=== PATIENT | male | born 1945 | race Caucasian/White ===

== ENCOUNTER 2020-04-03 13:25 | Emergency (ER) | payer BC, MEDICARE ==
[~2020-04-03] VITALS: Ht 190.5 cm; Wt 89.8 kg
[~2020-04-03 13:25] MED LIST: ALEVE220 M1 PO; ALEVE220 MG PO; AMARYL4 MG PO; ATENOLOL100 MG PO; BUSPIRONE HCL10 MG; CELEBREX200 MG PO; COUMADIN7.5 MG PO; CYCLOBENZAPRINE10 MG PO; DIGOXIN125 MCG PO; DIGOXIN250 MCG PO; DILTIAZEM ER180 MG PO; DOK250 MG PO; FLECAINIDE ACET50 MG PO; FLOMAX0.4 MG PO; FUROSEMIDE20 MG PO; GLUCOPHAGE1000 MG; HUMALOG100 UNIT/1; HYDROCODON-ACE1 EA11 PO; IRON18 MG PO; LANOXIN125 MCG PO; LANTUS100 UNITS/; LUNESTA3 MG PO; MICARDIS80 MG PO; MIRALAX17 GM PO; MULTI VITAMIN1 EACH PO; OMEPRAZOLE20 MG PO; OXYCODONE HCL5 MG PO; SIMVASTATIN20 MG PO; VITAMIN C500 M1 PO; WARFARIN SODIUM5 MG PO; XARELTO10 MG PO
[2020-04-03] MEDS ORDERED: VITAMIN D310 MC4 PO (14:06)
--- NOTE | 2020-04-04 12:17 | EKG ---
[facility] [address] [facility] [place], [place] [address] Signed Atrial fibrillation with rapid ventricular response Septal infarct , age undetermined Possible Inferior infarct , age undetermined Abnormal ECG No previous ECGs available Confirmed by NEVILLE BEAN DO ([id number]) on 04/04/2020 12:16:47 PM Electronically Signed By: NEVILLE BEAN DO 04/04/20 1217 PATIENT NAME: ARRON DIAZ Electrocardiogram DATE OF : 45 PHYSICIAN: NEVILLE BEAN DO REPORT #: [id number] REPORT IS CONFIDENTIAL AND NOT TO BE RELEASED WITHOUT AUTHORIZATION
--- NOTE | 2020-04-04 12:17 | EKG ---
[facility] [address] [facility] [place] [address] Signed Sinus rhythm with premature atrial complexes Possible Left atrial enlargement Septal infarct (cited on or before 03-APR-2020) Abnormal ECG When compared with ECG of 03-APR-2020 13:40, (Unconfirmed) Sinus rhythm has replaced Atrial fibrillation Vent. rate has decreased BY 40 BPM Confirmed by NEVILLE BEAN DO ([id number]) on 04/04/2020 12:16:52 PM Electronically Signed By: NEVILLE BEAN DO 04/04/20 1217 PATIENT NAME: ARRON DIAZ Electrocardiogram DATE OF : 45 PHYSICIAN: NEVILLE BEAN DO REPORT #: [id number] REPORT IS CONFIDENTIAL AND NOT TO BE RELEASED WITHOUT AUTHORIZATION
== END 2020-04-03 15:57 | disposition home or self-care (01) ==
LOC: ED 13:25
DX: I48.91 Unspecified atrial fibrillation (principal); Z79.899 Other long term (current) drug therapy
CPT/HCPCS: 80053; 83735; 84484; 85025; 92960; 93005; 93010; 99152; 99285-25; J2704

== ENCOUNTER 2020-06-03 11:48 | Emergency (ER) | payer BC, MEDICARE ==
[~2020-06-03] VITALS: Ht 190.5 cm; Wt 91.6 kg
[~2020-06-03 11:48] MED LIST changes: +VITAMIN D310 MC4 PO
[2020-06-03] MEDS ORDERED: ASPIR-TRIN325 MG PO (11:59)
--- NOTE | 2020-06-03 12:57 | EKG ---
[facility] [address] [place] [address] Signed Sinus rhythm with marked sinus arrhythmia Otherwise normal ECG When compared with ECG of 03-APR-2020 14:42, premature atrial complexes are no longer present Criteria for Septal infarct are no longer present Confirmed by ROBINSON ESTRELLA MD ([id number]) on 06/03/2020 12:57:17 PM Electronically Signed By: ROBINSON ESTRELLA MD 06/03/20 1257 PATIENT NAME: ARRON DIAZ Electrocardiogram DATE OF : 45 PHYSICIAN: ROBINSON ESTRELLA MD REPORT #: [id number] REPORT IS CONFIDENTIAL AND NOT TO BE RELEASED WITHOUT AUTHORIZATION
== END 2020-06-03 15:20 | disposition home or self-care (01) ==
LOC: ED 11:48
DX: R55 Syncope and collapse (principal); E86.0 Dehydration; I48.91 Unspecified atrial fibrillation; Z79.82 Long term (current) use of aspirin
CPT/HCPCS: 71045; 80053; 81001; 83735; 84484; 85025; 85610; 93005; 93010; 96360; 99284-25; J7030

== ENCOUNTER 2022-03-28 13:50 | Day surgery (SDC) | payer OTHER, MEDICARE ==
[~2022-03-28] VITALS: Ht 190.5 cm; Wt 88.6 kg
--- NOTE | ~2022-03-28 | OR ---
[facility] [address] [place], [place] [address] Draft DATE OF OPERATION: 03/28/2022 SURGEON: Michael Stephenson MD PREOPERATIVE DIAGNOSIS: History of polyps. POSTOPERATIVE DIAGNOSIS: Small polyp right transverse colon (excised). PROCEDURE: Total colonoscopy to cecum with cold morcellation polypectomy x1. ANESTHESIA: Intravenous sedation, fentanyl 100 mcg and Versed 7 mg. INDICATION: A 76-year-old white man is a patient of LILLIAM Bradshaw. He has undergone colonoscopy in [place] in the past and had excision of polyps x2. I saw him 12 years ago in 2009. He has had umbilical hernia surgery as well as other interventions in the past. 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 He is chronically anticoagulated with Eliquis for paroxysmal atrial fibrillation. He is admitted at this time to undergo colonoscopy for surveillance. He understands the risks of bleeding, infection, and perforation. FINDINGS: The prep was adequate. Complete colonoscopy was undertaken to the cecum with full intubation of the cecum. There was a single small adenomatous polyp in the right transverse colon, which was excised with cold morcellation technique. The remaining colon was normal. DESCRIPTION OF PROCEDURE: The patient was brought to the endoscopy suite and placed in lateral decubitus position, given intravenous sedation to the point of slurred speech and nystagmus. Digital rectal examination was normal. The Olympus video colonoscope was passed in the rectum and manipulated throughout the colon ultimately intubating the cecum itself. The ileocecal valve and appendiceal orifice were normal. Irrigation was undertaken as necessary. The scope was carefully withdrawn. Examination undertaken identifying a right transverse colon polyp directly PATIENT NAME: ARRON DIAZ OPERATIVE REPORT DATE OF : 45 REPORT #: [id number] PHYSICIAN: MICHAEL STEPHENSON MD PCP: YOLETTE MCLEAN PA-C REPORT IS CONFIDENTIAL AND NOT TO BE RELEASED WITHOUT AUTHORIZATION [facility] [address] [place] [id number] Draft in the area of the hepatic flexure. This was excised with cold morcellation technique. Further withdrawal of scope showed no other findings of concern. Retroflexed view of the rectum was normal. Scope was removed. The patient was taken to the recovery room in good condition. CONCLUDING DIAGNOSIS: Polyps x1. PLAN: Recommend repeat colonoscopy in five years, sooner if clinically indicated. He will return to the ongoing care of LILLIAM Bradshaw. MD PAULA Alford/AMBERLYL /[id number] cc: LILLIAM Bradshaw Copies: ~ PATIENT NAME: ARRON DIAZ OPERATIVE REPORT DATE OF : 45 REPORT #: [id number] PHYSICIAN: MICHAEL STEPHENSON MD PCP: YOLETTE MCLEAN PA-C REPORT IS CONFIDENTIAL AND NOT TO BE RELEASED WITHOUT AUTHORIZATION
[~2022-03-28 13:50] MED LIST changes: +ASPIR-TRIN325 MG PO; +ELIQUIS5 MG PO; +METOPROLOL SUCC25 MG PO; +TRIAMCINOLONE A15 G2 TOP
--- NOTE | 2022-03-28 16:26 | NUR ---
03/28/22 1626 Jeni Rondon 1550 PT ARRIVED IN PACU SLEEPY WITH NO C/O'S. ABD SOFT AND PASSING FLATUS. 1600 DR AT BEDSIDE. ALL QUESTIONS ANSWERED. 1615 RESTING. REU. 1625 SITTING UP IN BED SIPPING ON WATER.
--- NOTE | 2022-03-30 16:35 | PATH ---
[facility] [address] [place], [place] [address] Signed SPECIMEN(S): A RIGHT TRANSVERSE COLON POLYP SPECIMEN SOURCE: A. RIGHT TRANSVERSE COLON POLYP CLINICAL HISTORY: Pre: History of colon polyps, surveillance colonoscopy. Post: Polyp x 1. FINAL PATHOLOGIC DIAGNOSIS: Right transverse colon polyp: - Tubular adenoma (multiple fragments). JVR:tiffany:C2NR MICROSCOPIC EXAMINATION: Histologic sections of all submitted blocks are examined by light microscopy. These findings, together with the gross examination, support the pathologic diagnosis. GROSS DESCRIPTION: The specimen, labeled and designated "Stanislaw, right transverse colon polyp," is received in formalin and consists of three ramos soft tissue fragments, ranging from 0.2-0.4 cm. Entirely submitted in (A1). VB (under the direct supervision of a pathologist) The Gross Description was prepared using a voice recognition system. The report was reviewed for accuracy; however, sound-alike word errors, addition and/or deletions may occur. If there is any question about this report, please contact Client Services. PERFORMING LABORATORY: The technical component was performed by [facility], [address] [place] [id number] (CLIA# [id number]). Professional interpretation was performed by [facility], [address] [place] [id number] (CLIA#: [id number]). Diagnostician: Keith Vargas MD Pathologist Electronically Signed 03/30/2022 PATIENT NAME: ARRON DIAZ PATHOLOGY DATE OF : 45 REPORT #: [id number] PHYSICIAN: YESSY MCKEON PCP: YOLETTE MCLEAN PA-C REPORT IS CONFIDENTIAL AND NOT TO BE RELEASED WITHOUT AUTHORIZATION
== END 2022-03-28 16:42 | disposition home or self-care (01) ==
LOC: OPS 13:50 → DS 13:50 → OPS 14:00 → DS 14:00 → OPS 16:42
PROVIDERS: ATTEND Surgery
PROC: 0DBL8ZX Excision of Transverse Colon, Via Natural or Artificial Opening Endoscopic, Diagnostic (ICD-10-PCS; principal; 2022-03-28 14:00)
DX: Z12.11 Encounter for screening for malignant neoplasm of colon (principal); D12.3 Benign neoplasm of transverse colon; L92.9 Granulomatous disorder of the skin and subcutaneous tissue, unspecified; I48.20 Chronic atrial fibrillation, unspecified; Z86.010 Personal history of colon polyps; Z79.01 Long term (current) use of anticoagulants; Z79.899 Other long term (current) drug therapy
CPT/HCPCS: 99153; G0500; J0690; J2250; J3010; J7121

== ENCOUNTER 2023-04-23 10:58 | Emergency (ER) | payer OTHER, MEDICARE ==
[~2023-04-23] VITALS: Ht 190.5 cm; Wt 92.2 kg
[2023-04-23 11:07] VITALS: BP 136/82
[2023-04-23 11:24] LABS: BASOPHILS 0.5 % (0-2); EOSINOPHILS 2.6 % (0-6); HEMATOCRIT 41.2 % (35.0-50.0); HEMOGLOBIN 14.1 g/dL (12.0-18.0); LYMPHOCYTES 24.1 % (24-44); MCH 31.5 (27-36); MCHC 34.3 g/dl (30-36); MCV 91.7 fl (81-99); MONOCYTES 6.6 % (0-12); NEUTROPHILS 66.2 % (39-80); PLATELET COUNT 159 K/uL (140-440); RBC 4.49 M/ul (4.3-5.7); RDW 13.8 (10.5-15.0)
[2023-04-23 11:51] LABS: ALBUMIN 3.3 g/dL (3.4-5.0); ALBUMIN/GLOBULIN RATIO 0.75 (1.1-2.4); ANION GAP 12.4 (7-21); BILIRUBIN, TOTAL 0.5 ng/dL (0.2-1.0); BUN/CREATININE RATIO 18.93 (6.0-28.6); CALCIUM 9.4 mg/dL (8.5-10.1); CREATININE, SERUM 1.32 mg/dL (0.70-1.30); POTASSIUM 4.4 mmol/L (3.5-5.1); PROTEIN, TOTAL 7.7 g/dL (6.4-8.2)
--- NOTE | 2023-04-24 11:17 | EKG ---
[facility] [address] [facility] [place] [address] Signed Sinus rhythm with marked sinus arrhythmia with occasional premature ventricular complexes Inferior infarct , age undetermined Abnormal ECG When compared with ECG of 03-JUN-2020 12:04, premature ventricular complexes are now present Confirmed by RALPH SIDDIQI MD ([id number]) on 04/24/2023 11:17:51 AM Electronically Signed By: RALPH SIDDIQI 04/24/23 1117 PATIENT NAME: JOEARRON Electrocardiogram DATE OF : 45 PHYSICIAN: RALPH SIDDIQI REPORT #: [id number] REPORT IS CONFIDENTIAL AND NOT TO BE RELEASED WITHOUT AUTHORIZATION
== END 2023-04-23 13:34 | disposition home or self-care (01) ==
LOC: ED 10:58
PROVIDERS: Emergency Medicine
DX: I49.3 Ventricular premature depolarization (principal); I48.91 Unspecified atrial fibrillation; Z79.01 Long term (current) use of anticoagulants; Z79.899 Other long term (current) drug therapy
CPT/HCPCS: 36415; 71045; 80053; 83735; 83880; 84484; 85025; 93005; 93010; 99284-25

== ENCOUNTER 2023-05-02 08:44 | Emergency (ER) | payer OTHER, MEDICARE ==
[~2023-05-02] VITALS: Ht 190.5 cm; Wt 90.6 kg
--- OUTSIDE RECORDS SUMMARY | 2023-05-02 08:47 | XMS ---
PreManage Notification: ARRON DIAZ Security Data Entry Representative Events No recent Security Events currently on file CRITERIA MET - [facility] - 2 Visits in 30 Days CARE PROVIDERS There are no care providers on record at this time. Tenisha has no Care Guidelines for this patient. [facility] (12 MO.) [facility] NOTE: Visits indicate total known visits. ED/[facility] VISIT TRACKING (12 MO.) 05/02/2023 08:[facility] [place] [facility] COMPLAINT: - FAST HEART RATE 04/23/2023 10:58 [facility] [place] TYPE: Emergency COMPLAINT: - FAST HEART RATE DIAGNOSES: - [facility] (current) use of anticoagulants - Other fatigue - Other terminal computer operator (current) drug therapy - Unspecified atrial fibrillation - Ventricular premature depolarization INPATIENT VISIT TRACKING (12 MO.) No inpatient visits to display in this time frame [email or web address]
[2023-05-02 09:09] LABS: BASOPHILS 0.6 % (0-2); EOSINOPHILS 2.6 % (0-6); HEMATOCRIT 40.7 % (35.0-50.0); HEMOGLOBIN 14.3 g/dL (12.0-18.0); LYMPHOCYTES 25.1 % (24-44); MCH 31.9 (27-36); MCHC 35.2 g/dl (30-36); MCV 90.8 fl (81-99); MONOCYTES 7.4 % (0-12); NEUTROPHILS 64.3 % (39-80); PLATELET COUNT 158 K/uL (140-440); RBC 4.48 M/ul (4.3-5.7); RDW 13.9 (10.5-15.0)
[2023-05-02 09:25] LABS: ALBUMIN 3.3 g/dL (3.4-5.0); ALBUMIN/GLOBULIN RATIO 0.79 (1.1-2.4); ANION GAP 11.5 (7-21); BILIRUBIN, TOTAL 0.5 ng/dL (0.2-1.0); BUN/CREATININE RATIO 17.68 (6.0-28.6); CREATININE, SERUM 1.47 mg/dL (0.70-1.30); MAGNESIUM 2.1 mg/dL (1.8-2.4); POTASSIUM 4.5 mmol/L (3.5-5.1); PROTEIN, TOTAL 7.5 g/dL (6.4-8.2)
[2023-05-02 11:52] VITALS: BP 105/92
--- NOTE | 2023-05-02 21:15 | EKG ---
[facility] [address] [place] [address] [place] [address] Signed Sinus rhythm with marked sinus arrhythmia with frequent premature ventricular complexes Otherwise normal ECG When compared with ECG of 23-APR-2023 11:12, Criteria for Inferior infarct are no longer present Confirmed by Janett Castillo MD () on 05/02/2023 9:14:52 PM Electronically Signed By: JANETT CASTILLO MD 05/02/235 PATIENT NAME: ARRON DIAZ Electrocardiogram DATE OF : 45 PHYSICIAN: JANETT CASTILLO MD REPORT #: [id number] REPORT IS CONFIDENTIAL AND NOT TO BE RELEASED WITHOUT AUTHORIZATION
== END 2023-05-02 11:53 | disposition home or self-care (01) ==
LOC: ED 08:44
PROVIDERS: Emergency Medicine
DX: I50.9 Heart failure, unspecified (principal); I49.9 Cardiac arrhythmia, unspecified; I48.91 Unspecified atrial fibrillation; Z79.899 Other long term (current) drug therapy
CPT/HCPCS: 36415; 71045; 80053; 83605; 83735; 83880; 84484; 85025; 85379; 93005; 93010; 93308; 99285-25